=== PATIENT | male | born 1960 | race Caucasian/White ===

== ENCOUNTER → 2019-05-26 | Outpatient (REF) | payer BC ==
[2019-05-26 17:55] LABS: APPEARANCE, URINE CLEAR (CLEAR); BACTERIA, URINE AUTO NEGATIVE (NEGATIVE); BILIRUBIN, URINE AUTO NEGATIVE (NEGATIVE); BLOOD, URINE BLOOD NEGATIVE (NEGATIVE); COLOR, URINE YELLOW (YELLOW); GLUCOSE, URINE (UA) AUTO 1+ mg/dL (NEGATIVE); KETONE, URINE AUTO NEGATIVE (NEGATIVE); LEUKOCYTE ESTERASE, URINE AUTO NEGATIVE (NEGATIVE); NITRITE, URINE AUTO NEGATIVE (NEGATIVE); PROTEIN, URINE AUTO NEGATIVE (NEGATIVE); RBC, URINE AUTO 0 /HPF (0-3); SPECIFIC GRAVITY URINE AUTO 1.013 (1.002-1.035); SQUAMOUS EPITHELIAL CELL UR AU 0 /HPF (0-6); UROBILINOGEN, URINE AUTO 0.2 mg/dL (0.0-2.0); WBC, URINE AUTO 0 /HPF (0-3)
== END ==
LOC: M SMT 16:59
PROVIDERS: ATTEND Nurse Practitioner Family
DX: C67.9 Malignant neoplasm of bladder, unspecified (principal)

== ENCOUNTER → 2019-08-17 | Day surgery (SDC) | payer BC ==
[~2019-08-17] VITALS: Ht 180.3 cm; Wt 97.4 kg
[~2019-08-17] MED LIST: ASPI81TA85 PO; CYCL10TA PO; HYDR25TAB PO; LIDOCAINE 1% MDV 20ML VIAL SQ PRN; LR 1,000 ML IV ONE; MEGA1CAP3 PO; METO50TA7 PO; OMEP1CAP73 PO; VITAD1000T PO; ceFAZolin SOD 2 GM in IV 1 EA IV ONE
[2019-08-17 13:05] VITALS: BP 147/83
== END | disposition home or self-care (01) ==
LOC: M SDC 11:55
PROVIDERS: ATTEND Urology
DX: D41.4 Neoplasm of uncertain behavior of bladder (principal); Z53.20 Procedure and treatment not carried out because of patient's decision for unspecified reasons

== ENCOUNTER 2019-08-24 06:06 | Day surgery (SDC) | payer BC ==
[~2019-08-24] VITALS: Ht 180.3 cm; Wt 98.0 kg
[~2019-08-24 06:06] MED LIST changes: +CYCL-707 PO; -CYCL10TA PO; -LR 1,000 ML IV ONE
[2019-08-24] MEDS ORDERED: ALEV220T22 PO (06:42)
[2019-08-24] MEDS ORDERED: fentaNYL 100 MCG/2 ML INJECTION (J3010) As Ordered ONE (06:53)
[2019-08-24] MEDS ORDERED: LIDOCAINE 2% 100MG/5ML SDV (FOR ANES.) As Ordered ONE (06:53)
[2019-08-24] MEDS ORDERED: ePHEDrine SULFATE 25 MG/5 ML(5MG/ML) SYRINGE As Ordered ONE (06:53)
[2019-08-24] MEDS ORDERED: propofoL 200 MG/20 ML VIAL As Ordered ONE (06:53)
[2019-08-24] MEDS ORDERED: ONDANSETRON 4MG/2ML VIAL (J2405) As Ordered ONE (06:53)
[2019-08-24] MEDS ORDERED: PHENYLephrine HCL 500 MCG/5 ML (100MCG/ML) SYRINGE (J2370) As Ordered ONE (06:53)
[2019-08-24] MEDS ORDERED: dexameTHASONE 4 MG/ML 1ML VIAL (J1100 PER 1MG) As Ordered ONE (06:53)
[2019-08-24] MEDS ORDERED: MIDAZOLAM INJ 2 MG/2 ML VIAL (J2250) As Ordered ONE (06:53)
[2019-08-24] MEDS ORDERED: ROCURONIUM BROMIDE 50 MG/5 ML VIAL As Ordered ONE (07:23)
[2019-08-24] MEDS ORDERED: SUGAMMADEX SODIUM 500 MG/5 ML VIAL (BRIDION) As Ordered ONE (07:23)
[2019-08-24] MEDS ORDERED: LR 1,000 ML IV ONE (07:30)
[2019-08-24] MEDS ORDERED: ACETAMINOPHEN 1000MG 100ML IV BTL (OFIRMEV) (J0131 PER 10MG) As Ordered ONE (07:55)
[2019-08-24] MEDS ORDERED: fentaNYL 100 MCG/2 ML INJECTION (J3010) IV PRN (09:15)
[2019-08-24] MEDS ORDERED: oxyCODONE 5MG TAB PO PRN (09:15)
[2019-08-24] MEDS ORDERED: LR 1,000 ML IV SCH (09:15)
[2019-08-24] MEDS ORDERED: ONDANSETRON 4MG/2ML VIAL (J2405) IV PRN (09:15)
--- NOTE | 2019-08-24 09:29 | RO ---
DATE OF PROCEDURE: 08/24/2019 PREPROCEDURE DIAGNOSIS: Bladder cancer. POSTPROCEDURE DIAGNOSIS: Bladder cancer. PROCEDURE: Cystoscopy, transurethral resection of bladder tumor (less than 2 cm), urethral meatal dilation. SURGEON: Juan Ralph MD ADVANCED NURSING PROFESSOR: None. ANESTHESIA: General. OPERATIVE INDICATIONS: This is a 58-year-old male with a history of bladder cancer, who was recently found to have recurrent tumors at the bladder dome. He is brought to the operating room today for treatment. DESCRIPTION OF PROCEDURE: The patient was brought to the operating room, and general anesthesia was induced. Prophylactic antibiotics were infused. The patient was then placed in the dorsal lithotomy position and prepped and draped in the usual sterile fashion. At this point, I attempted to insert a resectoscope into the urethral meatus, but it would not go as the urethral meatus was too narrow. I, therefore, dilated the urethral meatus to 30-Liberian using curved metal sounds. Once that was done, I was able to advance the resectoscope in, and the bladder was thoroughly examined. Of note, there were two small tumors in the bladder dome, as well as another small one at the bladder base on the right. All three of these tumors were resected using a bipolar loop. The tumors were then removed from the bladder and sent for pathologic analysis. The base of resection was cauterized until there was good hemostasis. Once satisfied with hemostasis, I checked the bladder one more time to confirm that all tumors were gone and there were no other tumors. At this point, the resectoscope was removed, and an 18-Liberian Horta catheter was inserted into the bladder. The balloon was filled with 10 mL of sterile water, and the catheter was connected to gravity drainage. This marked the conclusion of the procedure. The patient was then taken out of the dorsal lithotomy position, awakened from anesthesia, and transported to the recovery room in stable condition. ESTIMATED BLOOD LOSS: 5 mL. COMPLICATIONS: None. SPECIMENS: Bladder tumors. PLAN: The patient will followup in the clinic in a few days for catheter removal and to discuss pathology results.
[2019-08-24 11:00] VITALS: BP 114/75
== END 2019-08-24 11:10 | disposition home or self-care (01) ==
LOC: M SDC 06:06
PROVIDERS: ATTEND Urology
DX: C67.8 Malignant neoplasm of overlapping sites of bladder (principal); I10 Essential (primary) hypertension; E55.9 Vitamin D deficiency, unspecified; K21.9 Gastro-esophageal reflux disease without esophagitis; Z79.82 Long term (current) use of aspirin; Z79.899 Other long term (current) drug therapy; Z87.891 Personal history of nicotine dependence
CPT/HCPCS: 52234; 88307; J0131; J0690; J1100; J2250; J2370; J2405; J3010

== ENCOUNTER → 2020-02-02 | Outpatient (REF) | payer BC ==
[~2020-02-02] MED LIST changes: +ALEV220T22 PO; -ASPI81TA85 PO; +ASPI81TA86 PO; +D31000TA2 PO; -LIDOCAINE 1% MDV 20ML VIAL SQ PRN; -VITAD1000T PO; -ceFAZolin SOD 2 GM in IV 1 EA IV ONE
== END ==
LOC: M SMT 16:55
PROVIDERS: ATTEND Urology
DX: C67.9 Malignant neoplasm of bladder, unspecified (principal)

== ENCOUNTER → 2020-07-22 | Outpatient (REF) | payer BC ==
[~2020-07-22] MED LIST changes: +HYDR-3490 PO; -HYDR25TAB PO
== END ==
LOC: M SMT 17:54
PROVIDERS: ATTEND Urology
DX: C67.9 Malignant neoplasm of bladder, unspecified (principal)

== ENCOUNTER → 2020-10-21 | Outpatient (REF) | payer BC | LOC: M SMT 15:54 | PROVIDERS: ATTEND Urology | DX: C67.9 Malignant neoplasm of bladder, unspecified (principal) ==

== ENCOUNTER → 2021-04-21 | Outpatient (REF) | payer BC | LOC: M SMT 13:26 | PROVIDERS: ATTEND Urology | DX: C67.9 Malignant neoplasm of bladder, unspecified (principal) ==

== ENCOUNTER → 2021-10-31 | Outpatient (REF) | payer BC ==
[~2021-10-31] MED LIST changes: -D31000TA2 PO; +VITA100093 PO
== END ==
LOC: M SMT 17:50
PROVIDERS: ATTEND Urology
DX: C67.9 Malignant neoplasm of bladder, unspecified (principal)

== ENCOUNTER → 2022-04-17 | Outpatient (REF) | payer BC | LOC: M SMT 17:17 | PROVIDERS: ATTEND Urology | DX: C67.9 Malignant neoplasm of bladder, unspecified (principal) ==

== ENCOUNTER → 2022-10-19 | Outpatient (REF) | payer BC | LOC: M SMT 17:29 | PROVIDERS: ATTEND Urology | DX: C67.9 Malignant neoplasm of bladder, unspecified (principal) ==

== ENCOUNTER → 2023-11-08 | Outpatient (REF) | payer BC | LOC: M SMT 12:44 | PROVIDERS: ATTEND Urology | DX: C67.9 Malignant neoplasm of bladder, unspecified (principal) ==